=== PATIENT | male | born 1960 | race Caucasian/White ===

== ENCOUNTER 2017-01-17 18:39 | Emergency (ER) | payer BC ==
[2017-01-17 18:57] VITALS: BP 144/108
[2017-01-17] MEDS ORDERED: Lidocaine 1% 20 ML MDV ONE (19:39)
--- NOTE | 2017-01-17 20:27 | EDM.PDOC ---
[facility] GENERAL MEDICAL PROBLEM - General Chief Complaint: Laceration Stated Complaint: CUT TIP OF FINGER Time Seen by Provider: 01/17/17 18:53 - History of Present Illness INITIAL COMMENTS - FREE TEXT/NARRATIVE: History of present illness: [56-year-old male who is presenting with the saw blade injury to his left index finger. He entered on the ulnar side just distal to the DIP joint and heading towards the base of the nail and the matrix. I believe the blade went in about a third of the way causing tissue loss and loss of about a third of his needle. Distally his finger is pink and he has sensation.] Review of systems: As per history of present illness and below otherwise all systems reviewed and negative. Past medical history: As per history of present illness and as reviewed below otherwise noncontributory. Surgical history: As per history of present illness and as reviewed below otherwise noncontributory. Social history: No reported history of drug or alcohol abuse. Family history: As per history of present illness and as reviewed below otherwise noncontributory. Physical exam: HEENT: Atraumatic, normocephalic, pupils reactive, negative for conjunctival pallor or scleral icterus, mucous membranes moist, throat clear, neck supple, nontender, trachea midline. Lungs: Clear to auscultation, breath sounds equal bilaterally, chest nontender. Heart: S1S2, regular, negative for clicks, rubs, or JVD. EXT: Examination of the finger in question shows the injury as that described in the HPI. It appears to be a clean wound. Diagnostics: [X-rays show comminution of the distal phalanx of this finger and the finger pad. ] Therapeutics: [After 1% lidocaine injection without epinephrine placed as a finger block in the tendon sheath and then distally also at the region of the injury itself. the patient was taken over to the sink and the finger was thoroughly washed with soap and water. After this patient was placed back on the cart and draped and the injury was inspected and we discovered several pieces of the nail that had been driven into the matrix and pulp of the finger. These were removed. The finger was then closed with 3-0 Ethilon with 3 interrupted sutures. A tube gauze dressing was placed with ointment and nonstick is in the to cause itself. ] Impression: [Saw blade injury to the left index finger] Plan: [He will followup in Dr. Woodruff's clinic this Saturday. I will provide him with Wainwright and Keflex. His tetanus is up-to-date] Definitive disposition and diagnosis as appropriate pending reevaluation and review of above. - Related Data Allergies Allergy/AdvReac Type Severity Reaction Status Date / Time No Known Allergies Allergy Verified 03/13/16 23:15 Home Meds: Home Meds Cyanocobalamin (Vitamin B12) [Vitamin B12] 1,000 mcg PO DAILY 06/25/14 [History] Lisinopril [Prinivil] 10 mg PO DAILY 06/25/14 [History] Multivitamin [Multi Vitamin Daily] 1 tab PO DAILY 06/25/14 [History] Aspirin [[place] Aspirin] 81 mg PO DAILY 03/13/16 [History] Past Medical History HEENT History: Reports: Impaired Vision Cardiovascular History: Reports: Hypertension Neurological History: Reports: Neuropathy, Peripheral - Infectious Disease History Infectious Disease History: Reports: Chicken Pox - Past Surgical History Musculoskeletal Surgical History: Reports: Arthroscopic Knee, Other (See Below) Social & Family History - Tobacco Use Smoking Status *Q: Never Smoker - Caffeine Use Caffeine Use: Reports: Soda - Recreational Drug Use Recreational Drug Use: No ED ROS GENERAL - Review of Systems Review Of Systems: ROS reveals no pertinent complaints other than HPI. ED EXAM, SKIN/RASH Exam: See Below Course - Vital Signs Last Recorded V/S: Last Vital Signs Temp 36.8 C 01/17/17 18:56 Pulse 85 01/17/17 18:56 Resp 16 01/17/17 18:56 BP 144/108 H 01/17/17 18:56 Pulse Ox 95 01/17/17 18:56 - Orders/Labs/Meds Orders: Active Orders 24 hr Category Date Time Status Fingers Second Digit Lt F1 [CR] Stat Exams 01/17/17 18:54 Taken Meds: Medications Discontinued Medications Generic Name Dose Route Start Last Admin Trade Name Mima PRN Reason Stop Dose Admin Lidocaine HCl Confirm 01/17/17 19:39 Xylocaine 1% Administered 01/17/17 19:40 Dose 20 ml .ROUTE .STK-MED ONE Departure - Departure Time of Disposition: 20:27 Disposition: Home, Self-Care 01 Condition: good Clinical Impression: Finger laceration Qualifiers: Encounter type: initial encounter Qualified Code(s): S61.219A - Laceration without foreign body of unspecified finger without damage to nail, initial encounter - Discharge Information Forms: ED Department Discharge Additional Instructions: You are to followup with Dr. Medardo Woodruff in his orthopedic clinic this Saturday. The nurses should be able to provide you with his phone number. Leave the dressing on until then. - My Orders Last 24 Hours: My Active Orders 01/17/17 18:54 Fingers Second Digit Lt F1 [CR] Stat - Assessment/Plan Last 24 Hours: My Active Orders 01/17/17 18:54 Fingers Second Digit Lt F1 [CR] Stat
[2017-01-17] MEDS ORDERED: Lidocaine 1% 20 ML MDV INJECT ONE (20:32)
--- NOTE | 2017-01-18 09:37 | CR ---
Comminuted second distal tuft fracture with multiple bone fragments about it. Soft tissue injury at the tuft.
== END 2017-01-17 20:45 | disposition home or self-care (01) ==
LOC: JP.ED 18:39
DX: S61.211A Laceration without foreign body of left index finger without damage to nail, initial encounter (principal); I10 Essential (primary) hypertension; Z79.899 Other long term (current) drug therapy; Z79.82 Long term (current) use of aspirin; W27.8XXA Contact with other nonpowered hand tool, initial encounter
CPT/HCPCS: 12001; 73140; 99283; A4217

== ENCOUNTER 2022-06-18 05:53 | Day surgery (SDC) | payer BC ==
[2022-06-18] MEDS ORDERED: Midazolam 1 MG/ML 2 ML SDV ONE (07:10)
[2022-06-18] MEDS ORDERED: fentaNYL 100 MCG/2 ML SDV ONE (07:10)
[2022-06-18] MEDS ORDERED: Propofol 200 MG/20 ML SDV ONE (07:11)
[2022-06-18] MEDS ORDERED: Lactated Ringers 1,000 ML IV SCH (07:30)
[2022-06-18 08:21] VITALS: PULSE 75
[2022-06-18 08:47] VITALS: BP 92/59
== END 2022-06-18 08:59 | disposition home or self-care (01) ==
LOC: JP.SDS 05:53
PROVIDERS: ATTEND Student in an Organized Health Care Education/Training Program
DX: Z12.11 Encounter for screening for malignant neoplasm of colon (principal); K57.30 Diverticulosis of large intestine without perforation or abscess without bleeding; I10 Essential (primary) hypertension; E66.3 Overweight
CPT/HCPCS: 45378; J2250; J2704; J3010; J7120

== ENCOUNTER 2025-05-03 10:38 | Emergency (ER) | payer OTHER, BC ==
[2025-05-03 11:41] VITALS: BP 146/100; PULSE 94
== END 2025-05-03 14:50 | disposition home or self-care (01) ==
LOC: JP.ED 10:38
DX: S13.4XXA Sprain of ligaments of cervical spine, initial encounter (principal); I10 Essential (primary) hypertension; Z79.82 Long term (current) use of aspirin; Z79.899 Other long term (current) drug therapy; V87.7XXA Person injured in collision between other specified motor vehicles (traffic), initial encounter
CPT/HCPCS: 70450; 70450-26; 72125; 72125-26; 76377; 99001; 99283; 99284